=== PATIENT | female | born 1985 | race Caucasian/White ===

== ENCOUNTER 2023-08-19 11:41 | Emergency (ER) | payer OTHER, SELFPAY ==
[2023-08-19] VITALS (11 sets, daily range): BP systolic 92–148; BP diastolic 56–90; PULSE 64–113; RESP 14–18; TEMP 36.8; O2SAT 95–98; BMI 17.7
--- NOTE | 2023-08-19 11:56 | EX.ED.VIS.PS ---
HPI <ELISHA Storey - Last Filed: 08/19/23 17:01> HPI - Psych History of Present Illness Chief Complaint: Suicidal Narrative Narrative: 38-year-old female has a past medical history of anxiety and depression. She lives in [place] by herself and her work contract recently ended. Dad states she has had periods of intermittent contact but stopped talking to them over the last month. Dad drove down to [place] and told her she was either going to the hospital or coming home with him. He states she is paranoid and saying that a job counselor she was speaking to was going to tell the media about her. She stopped taking all of her medications at some point and states she is more depressed and suicidal. She is not sleeping well. She has a plan where she would put her dog in daycare, overdose on pills, and have an automatic email sent the next day to notify her family. She is scheduled to see her psychiatrist on August 22 in [place] but does not think she can wait that long. She has talked to the mobile crisis unit who has been checking in on her. She states she had similar suicidal thoughts in 2019 and was hospitalized. [facility] <ELISHA Storey - Last Filed: 08/19/23 17:01> [facility] Home Medications aripiprazole 5 mg tablet 5 mg PO DAILY 08/20/23 [History Last Taken Unknown] atomoxetine 60 mg capsule 60 mg PO DAILY 08/20/23 [History Last Taken Unknown] clonazepam 0.5 mg tablet 0.5 mg PO BID 08/20/23 [History Last Taken Unknown] dextroamphetamine-amphetamine 20 mg tablet (Adderall) 20 mg PO BID 08/20/23 [History Last Taken Unknown] doxepin 10 mg capsule 10 mg PO QHS 08/20/23 [History Last Taken Unknown] escitalopram oxalate 20 mg tablet 30 mg PO DAILY 08/20/23 [History Last Taken Unknown] levomefolate calcium 15 mg tablet (L-Methylfolate) 15 mg PO DAILY 08/20/23 [History Last Taken Unknown] Allergy/AdvReac Type Severity Reaction Status Date / Time Penicillins Allergy Intermediate Hives Verified 08/19/23 12:28 Social History Smoking Status: Never smoker ROS <ELISHA Storey - Last Filed: 08/19/23 17:01> ROS ED ROS Narrative Constitutional: Negative for fever, chills, malaise. CVS: Negative for chest pain. Respiratory: Negative for shortness of breath. GI: Negative for abdominal pain, nausea, vomiting. EXAM <ELISHA Storey - Last Filed: 08/19/23 17:01> Physical Exam Narrative Exam Narrative: CONST: Patient huddled in bed crying. EYES: Normal inspection. NECK: Normal inspection. RESP: No respiratory distress, CTAB. CVS: Regular rate and rhythm, no murmur, no gallop. SKIN: Color normal, no rash, warm, dry, intact. EXTREMITIES: Normal appearance, no pedal edema. NEURO: Oriented x4. PSYCH: Anxious, tearful. Const Vital Signs: 08/19/23 11:42 08/19/23 14:51 08/19/23 15:00 Temperature 98.3 F Temperature Source Temporal Pulse Rate 113 H Respiratory Rate 14 18 16 Blood Pressure 148/90 H Blood Pressure Mean 109 Pulse Ox 96 Oxygen Delivery Method Room Air 08/19/23 16:00 Temperature Temperature Source Pulse Rate Respiratory Rate 16 Blood Pressure Blood Pressure Mean Pulse Ox Oxygen Delivery Method <Dr. Delmar Etienne DO - Last Filed: 08/21/23 14:56> Physical Exam Const Vital Signs: 08/19/23 11:42 08/19/23 14:51 08/19/23 15:00 Temperature 98.3 F Temperature Source Temporal Pulse Rate 113 H Respiratory Rate 14 18 16 Blood Pressure 148/90 H Blood Pressure Mean 109 Pulse Ox 96 Oxygen Delivery Method Room Air 08/19/23 16:00 Temperature Temperature Source Pulse Rate Respiratory Rate 16 Blood Pressure Blood Pressure Mean Pulse Ox Oxygen Delivery Method MDM <ELISHA Storey - Last Filed: 08/19/23 17:01> [facility] Narrative Medical decision making narrative: Patient has suicidal ideation with a plan to overdose. She appears very anxious and tearful. Heart rate is 113 with otherwise stable vital signs. Exam is otherwise benign. Screening labs were ordered. CBC is within normal limits. BMP has mild hypokalemia at 3.2 which was repleted p.o., otherwise unremarkable. Alcohol and tox screen negative. Salicylate and Tylenol levels negative. COVID-19 test is negative. Patient is medically cleared and will be evaluated by crisis. Crisis and I both agree patient needs inpatient evaluation. Patient was given p.o. Ativan for agitation and anxiety. She was reevaluated at 5 PM by myself and the crisis counselor with her dad present. They were requesting that she go home with Ativan and dad will take her to her outpatient psychiatry appointment on August 22. She states her psychiatrist has discussed with her outpatient programs she is more interested in doing. I really do not feel comfortable with this plan as she is having paranoia and had a very clear suicidal plan. She is not taking her medications which include SSRIs and antipsychotics. I do not feel that this crisis point be well-managed by showing up to her outpatient psychiatry appointment in [place] and I expressed this to them. She is pink slipped and plan is to move forward with transfer to inpatient facility. Attending note: Patient seen and evaluated with museum tour guide. I perform my own [id number] evaluation. I agree with the plan of work-up. Here with father increasing suicidal ideations. She is from [place]. Parents picked her up and brought her up here. She reports had issues throughout her life. Started seeing a psychiatrist in [place] over the last year she has been on tried multiple medications. She states been diagnosed with ADHD and anxiety. They had initial working diagnosis of bipolar however she states she was told this is not likely. She was placed currently on Lexapro, she has been declining clonazepam due to concerns of overuse. She has not been compliant with her recent medications. She denies any recent alcohol or drug use. She was hospitalized back in 2019 in [place]. No acute stressing events here recently. She states she had plans of overdosing on medications. She no specific plans of putting her dog in the kennel and then taking the medications so her parents would not know. She denies any active auditory or visual hallucinations. However states on recent work phone conversation heard noises that made her afraid. Exams anxious and tearful. Medical clearance workup initiated she did agree with p.o. Ativan in the ED which was ordered. Labs all stable slight hypokalemia with oral replacement given. Patient is medically cleared. Discussed with crisis, they will evaluate the patient however reported that they have had contact with the patient with phone calls since being up in the area. Reports likely had of requiring admission to psychiatric facility. [place] slip has been filled out. Lab Data Labs: Laboratory Results - last 24 hr 08/19/23 08/19/23 12:15 12:17 WBC 6.1 RBC 4.59 Hgb 13.4 Hct 38.7 MCV 84.3 MCH 29.2 MCHC 34.6 RDW Std Deviation 36.2 RDW Coeff of Hung 12.0 Plt Count 389 MPV 9.1 Immature Gran % (Auto) 0.300 Neut % (Auto) 61.2 Lymph % (Auto) 26.5 Donley % (Auto) 7.7 Eos % (Auto) 3.3 Baso % (Auto) 1.0 Absolute Neuts (auto) 3.8 Absolute Lymphs (auto) 1.63 Nucleated RBC % 0 Sodium 142 Potassium 3.2 L Chloride 109 H Carbon Dioxide 27.0 Anion Gap 6 BUN 12 Creatinine 0.75 Estim Creat Clear Calc 73.82 Est GFR (MDRD) Af Amer 110 Est GFR (MDRD) Non-Af 91 BUN/Creatinine Ratio 16.0 Glucose 144 H Calcium 9.5 Serum , Qual NEGATIVE Salicylates < 1.7 L Urine Opiates Screen NEGATIVE Urine Methadone Screen NEGATIVE Acetaminophen < 2.0 L Ur Barbiturates Screen NEGATIVE Ur Phencyclidine Scrn NEGATIVE Ur Amphetamines Screen NEGATIVE MDMA (Ecstasy) Screen NEGATIVE U Benzodiazepines Scrn NEGATIVE Urine Cocaine Screen NEGATIVE U Cannabinoids Screen NEGATIVE Ur Drug Screen Comment Ethyl Alcohol < 3.0 <Dr. Delmar Etienne, DO - Last Filed: 08/21/23 14:56> [facility] MDM Narrative Medical decision making narrative: Patient has suicidal ideation with a plan to overdose. She appears very anxious and tearful. Heart rate is 113 with otherwise stable vital signs. Exam is otherwise benign. Screening labs were ordered. CBC is within normal limits. BMP has mild hypokalemia at 3.2 which was repleted p.o., otherwise unremarkable. Alcohol and tox screen negative. Salicylate and Tylenol levels negative. COVID-19 test is negative. Patient is medically cleared and will be evaluated by crisis. Attending note: Patient seen and evaluated with museum tour guide. I perform my own [id number] evaluation. I agree with the plan of work-up. Here with father increasing suicidal ideations. She is from [place]. Parents picked her up and brought her up here. She reports had issues throughout her life. Started seeing a psychiatrist in [place] over the last year she has been on tried multiple medications. She states been diagnosed with ADHD and anxiety. They had initial working diagnosis of bipolar however she states she was told this is not likely. She was placed currently on Lexapro, she has been declining clonazepam due to concerns of overuse. She has not been compliant with her recent medications. She denies any recent alcohol or drug use. She was hospitalized back in 2019 in [place]. No acute stressing events here recently. She states she had plans of overdosing on medications. She no specific plans of putting her dog in the kennel and then taking the medications so her parents would not know. She denies any active auditory or visual hallucinations. However states on recent work phone conversation heard noises that made her afraid. Exams anxious and tearful. Medical clearance workup initiated she did agree with p.o. Ativan in the ED which was ordered. Labs all stable slight hypokalemia with oral replacement given. Patient is medically cleared. Discussed with crisis, they will evaluate the patient however reported that they have had contact with the patient with phone calls since being up in the area. Reports likely had of requiring admission to psychiatric facility. [place] slip has been filled out. Lab Data Labs: Laboratory Results - last 24 hr 08/19/23 08/19/23 12:15 12:17 WBC 6.1 RBC 4.59 Hgb 13.4 Hct 38.7 MCV 84.3 MCH 29.2 MCHC 34.6 RDW Std Deviation 36.2 RDW Coeff of Hung 12.0 Plt Count 389 MPV 9.1 Immature Gran % (Auto) 0.300 Neut % (Auto) 61.2 Lymph % (Auto) 26.5 Donley % (Auto) 7.7 Eos % (Auto) 3.3 Baso % (Auto) 1.0 Absolute Neuts (auto) 3.8 Absolute Lymphs (auto) 1.63 Nucleated RBC % 0 Sodium 142 Potassium 3.2 L Chloride 109 H Carbon Dioxide 27.0 Anion Gap 6 BUN 12 Creatinine 0.75 Estim Creat Clear Calc 73.82 Est GFR (MDRD) Af Amer 110 Est GFR (MDRD) Non-Af 91 BUN/Creatinine Ratio 16.0 Glucose 144 H Calcium 9.5 Serum , Qual NEGATIVE Salicylates < 1.7 L Urine Opiates Screen NEGATIVE Urine Methadone Screen NEGATIVE Acetaminophen < 2.0 L Ur Barbiturates Screen NEGATIVE Ur Phencyclidine Scrn NEGATIVE Ur Amphetamines Screen NEGATIVE MDMA (Ecstasy) Screen NEGATIVE U Benzodiazepines Scrn NEGATIVE Urine Cocaine Screen NEGATIVE U Cannabinoids Screen NEGATIVE Ur Drug Screen Comment Ethyl Alcohol < 3.0 Discharge Plan Triage Chief Complaint: Suicidal ED Midlevel Provider: Kelli Velasco ED Provider: Delmar Etienne Dx/Rx/DC Orders Clinical Impression: History of bipolar disorder, History of anxiety, Suicidal ideation, History of ADHD Prescriptions: No Action doxepin 10 mg capsule 10 mg PO QHS Patient Comments: TAKE 1 CAPSULE BY MOUTH EVERY NIGHT AT BEDTIME FOR SLEEP aripiprazole 5 mg tablet 5 mg PO DAILY Patient Comments: START TAKING 1/2 TABLET DAILY FOR 2 WEEKS. THEN. INCREASE TO 1 TABLET DAILY TOLERATED dextroamphetamine-amphetamine [Adderall] 20 mg tablet 20 mg PO BID Rx Instructions: administer doses at least 4-6 hours apart levomefolate calcium [L-Methylfolate] 15 mg tablet 15 mg PO DAILY atomoxetine 60 mg capsule 60 mg PO DAILY Patient Comments: TAKE 1 CAPSULE BY MOUTH EVERY DAY clonazepam 0.5 mg tablet 0.5 mg PO BID Patient Comments: TAKE 1 TABLET BY MOUTH TWICE DAILY escitalopram oxalate 20 mg tablet 30 mg PO DAILY Patient Comments: TAKE 1 AND 1/2 TABLET BY MOUTH EVERY DAY Primary Care Provider: Care Physician,No Primary Referrals: Care Physician,No Primary [Primary Care Provider] - Disposition Disposition: Psychiatric Hospital or Unit Discharge Location: [facility] Discharge Date/Time: 08/20/23 09:46
[2023-08-19] MEDS: LORazepam 1 MG Tablet PO (12:27)
[2023-08-19 12:32] LABS: Absolute Lymphocyte Count 1.63 X10^3/uL (0.83-4.51); Absolute Neutrophil Count 3.8 X10^3/uL (2.0-7.7); Basophil# 0.06 X10^3/uL; Eosinophils% 3.3 % (0-5); Hematocrit 38.7 % (37-47); Hemoglobin 13.4 g/dL (12.0-15.0); Lymphocyte # 1.63 X10^3/ul (0.83-4.51); Lymphocyte % 26.5 % (19-41); Mean Corp Hgb Conc 34.6 g/dL (32-36); Mean Corpuscular Hgb 29.2 pg (27.0-32.0); Mean Corpuscular Volume 84.3 fL (81-99); Mean Platelet Vol. 9.1 fl (6.2-12.0); Monocyte# 0.47 X10^3/uL; Monocyte% 7.7 % (0-10); NRBC Flagged by Analyzer 0 % (0-5); Neutrophil # 3.76 X10^3/uL (2.7-7.7); Neutrophil % 61.2 % (47-70); Platelet Count 389 K/mm3 (150-450); RBC Distribution Width SD 36.2 fl (35.1-43.9); Red Blood Count 4.59 M/mm3 (4.2-5.4); White Blood Count 6.1 K/mm3 (4.4-11.0)
[2023-08-19 12:43] LABS: Amphetamine Urine VISTA NEGATIVE (<1000 ng/mL); Barbiturate Urine VISTA NEGATIVE (< 200 ng/mL); Benzodiazepine Urine VISTA NEGATIVE (< 200 ng/mL); Cocaine Urine VISTA NEGATIVE (< 300 ng/mL); Ecstacy Urine VISTA NEGATIVE (< 500 ng/mL); Methadone Urine VISTA NEGATIVE (< 300 ng/mL); PCP Urine VISTA NEGATIVE (< 25 ng/mL); THC Urine VISTA NEGATIVE (< 50 ng/mL); Vista UDS pH Range 5
[2023-08-19 12:50] LABS: Internal QC Validated? YES +Cl - CLEAR BKGD; Pregnancy, Serum, hCG Quali. NEGATIVE Negative
[2023-08-19 12:53] LABS: Anion Gap 6 (5-15); BUN 12 mg/dL (7-18); Calcium,Total 9.5 mg/dL (8.5-10.1); Chloride 109 mmol/L (98-107); Creatinine, Serum 0.75 mg/dL (0.55-1.02); EST Glomerular Filtration Rate 91 mL/min (>60); Est Glom Filt Rate - Afr Amer 110 mL/min (>60); Estimated Creatinine Clearance 73.82 ml/min; Glucose 144 mg/dL (74-106); Potassium 3.2 mmol/L (3.5-5.1); Sodium Level 142 mmol/L (136-145)
[2023-08-19 12:57] LABS: Alcohol, Blood (Medical)-Serum < 3.0 mg/dL
[2023-08-19 13:00] LABS: Acetaminophen (Tylenol) Level < 2.0 ug/mL (10.0-30.0); Salicylate < 1.7 mg/dL (2.8-20.0)
--- NOTE | 2023-08-19 13:34 | ED.RN ---
[facility] CALLED TO LET THEM KNOW PT WILL NEED EVALUATED.
--- NOTE | 2023-08-19 14:04 | ED.RN ---
FAXED MEDICAL CLEARANCE TO [facility]
[2023-08-19] MEDS: Potassium Chloride Oral Tablet 20 MEQ 40 MEQ PO (14:09)
[2023-08-19] MEDS: LORazepam 0.5 MG Tablet PO (19:25)
--- NOTE | 2023-08-19 21:03 | ED.RN ---
[facility] WAS CALLED AT 210 FOR AN UPDATE ON THE REQUESTED OUTSOURCE; THEY SAID THAT [facility], [facility], AND [facility] WERE ALL UNAVAILABLE. SO ETA FOR TRANSPORT IS STILL 0700.
[2023-08-20] VITALS (8 sets, daily range): BP systolic 105; BP diastolic 72; PULSE 81–115; RESP 14–18; TEMP 36.6; O2SAT 98–99
--- NOTE | 2023-08-20 06:15 | ED.RN ---
Pt calls out stating she is feeling very anxious about her transport and would like something to help with her nerves. Dr Fulton notified, will medicate per MAR.
[2023-08-20] MEDS: LORazepam 1 MG Tablet PO (06:21)
--- NOTE | 2023-08-20 06:45 | ED.RN ---
REPORT CALLED TO [facility], SPOKE WITH
--- NOTE | 2023-08-20 07:07 | ED.RN ---
[facility] WAS DIVERTED TO [facility] FOR A MORE URGENT TRANSFER, NEW ETA IS 0900 TO BE PICKED UP.
--- NOTE | 2023-08-20 07:14 | ED.RN ---
[facility] transport delayed until 0900. [facility] called and updated on ETA.
== END 2023-08-20 09:46 ==
PROVIDERS: Physician Assistant; Emergency Provider Emergency Medicine; Visit Provider Emergency Medicine
DX: R45.851 Suicidal ideations (principal); F31.9 Bipolar disorder, unspecified; F41.9 Anxiety disorder, unspecified; E87.6 Hypokalemia; Z79.899 Other long term (current) drug therapy; R45.1 Restlessness and agitation; F90.9 Attention-deficit hyperactivity disorder, unspecified type
CPT/HCPCS: 80048; 80307; 80320; 80329; 84703; 85025; 87811; 99285; G0480